=== PATIENT | male | born 1970 | race African-American/Black ===

== ENCOUNTER 2017-03-30 14:05 | Emergency (ER) | payer MEDICAID ==
[~2017-03-30] VITALS: Ht 185.4 cm; Wt 107.0 kg
[2017-03-30 14:10] VITALS: BP 164/105
== END 2017-03-30 16:25 | disposition left against medical advice (07) ==
LOC: ER 15:18
DX: R07.9 Chest pain, unspecified (principal); Z53.21 Procedure and treatment not carried out due to patient leaving prior to being seen by health care provider

== ENCOUNTER 2023-03-27 10:36 | Emergency (ER) | payer MEDICAID ==
[~2023-03-27] VITALS: Ht 185.4 cm; Wt 104.3 kg
[2023-03-27 10:52] VITALS: O2SAT 98
[2023-03-27] MEDS ORDERED: ACETAMINOPHEN 500MG TABLET PO ONE (12:30)
[2023-03-27] MEDS ORDERED: KETOROLAC 30MG/ML VIAL IV ONE (12:30)
[2023-03-27 13:06] VITALS: BP 148/105
[2023-03-27] MEDS ORDERED: CYCL10TA21 MT (13:30)
[2023-03-27 13:39] VITALS: PULSE 80; RESP 14; TEMP 98.4
== END 2023-03-27 13:40 | disposition home or self-care (01) ==
LOC: ER 10:36
DX: M54.30 Sciatica, unspecified side (principal); M25.552 Pain in left hip; I10 Essential (primary) hypertension
CPT/HCPCS: 99283; 96374; J1885